=== PATIENT | female | born 1995 | race Caucasian/White ===

== ENCOUNTER 2022-04-27 14:29 | Emergency (ER) | payer MEDICAID ==
[~2022-04-27] VITALS: Ht 157.5 cm; Wt 65.8 kg
--- NOTE | 2022-04-27 14:30 | NUR ---
Patient BIBA to bed 3.
[2022-04-27 14:31] VITALS: BP 148/98
[2022-04-27 15:26] LABS: BASOPHILS % (AUTO) 0.5 % (0.0-2.0); EOSINOPHILS # (AUTO) 0.1 K/uL (0-0.4); EOSINOPHILS % (AUTO) 0.9 % (0.0-4.0); HEMOGLOBIN 11.7 g/dL (12.0-16.0); LYMPHOCYTES % (AUTO) 10.8 % (20.5-51.1); MEAN CORPUSCULAR HEMOGLOBIN 28 pg (27-31); MEAN CORPUSCULAR HGB CONC 32 g/dL (33-37); MEAN CORPUSCULAR VOLUME 86.6 fL (80-94); MONOCYTES # (AUTO) 0.4 K/uL (0.8-1.0); MONOCYTES % (AUTO) 3.8 % (1.7-9.3); NEUTROPHILS # (AUTO) 7.8 K/uL (1.8-7.7); PLATELET COUNT (AUTO) 266 K/uL (140-450); RED BLOOD CELL COUNT(AUTO) 4.15 MIL/uL (4.20-5.40); RED CELL DISTRIBUTION WIDTH 17.7 % (11.6-13.7); WHITE BLOOD COUNT (AUTO) 9.2 K/uL (4.8-10.8)
[2022-04-27 15:45] LABS: ALBUMIN 2.9 g/dL (3.4-5.0); CARBON DIOXIDE 29.2 mmol/L (21-32); CREATININE 0.7 mg/dL (0.6-1.3); POTASSIUM 4.2 mmol/L (3.5-5.1); TOTAL BILIRUBIN 0.1 mg/dL (0.0-1.0)
[2022-04-27] MEDS ORDERED: DICYCLOMINE 10 MG CAP PO ONE (15:45)
[2022-04-27] MEDS ORDERED: NACL 0.9% 1,000 ML IV ONE (15:45)
[2022-04-27] MEDS ORDERED: KETOROLAC 15 MG/ML VIAL IM ONE (15:45)
[2022-04-27] MEDS ORDERED: MIRABULK PO (16:10)
[2022-04-27] MEDS ORDERED: NA P133N1 RC (16:10)
[2022-04-27 17:19] VITALS: BP 129/74
--- NOTE | 2022-04-27 17:20 | NUR ---
Patient discharged with v/s stable. Written and verbal after care instructions given and explained. Patient alert, oriented and verbalized understanding of instructions. Ambulatory with steady gait. All questions addressed prior to discharge. ID band removed. Patient advised to follow up with PMD Patient educated on indication of medication including possible reaction and side effects. Opportunity to ask questions provided and answered.
--- NOTE | 2022-04-30 14:33 | NUR ---
LATE ENTRY-IVP/IM/IVF
== END 2022-04-27 17:20 | disposition home or self-care (01) ==
LOC: MED 14:29
DX: K59.00 Constipation, unspecified (principal); E03.9 Hypothyroidism, unspecified; Z79.899 Other long term (current) drug therapy
CPT/HCPCS: 36415; 74018; 80053; 85025; 96361; 96374; 99284; J1885; Q0092; J7030